=== PATIENT | female | born 1975 | race Two or more races ===

== ENCOUNTER 2018-05-20 09:53 | Outpatient (CLI) | payer OTHER | END 2018-05-20 10:07 | disposition home or self-care (01) | LOC: NUCLEAR 09:53 | DX: M06.89 Other specified rheumatoid arthritis, multiple sites (principal); M05.49 Rheumatoid myopathy with rheumatoid arthritis of multiple sites | CPT/HCPCS: 78315; A9503 ==

== ENCOUNTER 2020-10-26 21:43 | Emergency (ER) | payer OTHER ==
[~2020-10-26] VITALS: Ht 154.9 cm; Wt 86.2 kg
[2020-10-26] MEDS ORDERED: PROTONIX40 MG PO (22:31)
[2020-10-27] MEDS ORDERED: ZOFRAN8 MG PO (04:31)
[2020-10-27] MEDS ORDERED: PEPCID40 MG PO (04:31)
== END 2020-10-27 04:45 | disposition home or self-care (01) ==
LOC: ER 21:43
DX: K29.70 Gastritis, unspecified, without bleeding (principal); R11.11 Vomiting without nausea; Z11.52 Encounter for screening for COVID-19

== ENCOUNTER 2022-02-10 14:44 | Emergency (ER) | payer OTHER ==
[~2022-02-10] VITALS: Ht 154.9 cm; Wt 101.6 kg
[~2022-02-10 14:44] MED LIST: PEPCID40 MG PO; PROTONIX40 MG PO; ZOFRAN8 MG PO
[2022-02-10] MEDS ORDERED: METFORMIN HCL500 M3 (15:39)
== END 2022-02-10 20:50 | disposition home or self-care (01) ==
LOC: ER 14:44
DX: R07.89 Other chest pain (principal); E11.9 Type 2 diabetes mellitus without complications; Z79.84 Long term (current) use of oral hypoglycemic drugs; I10 Essential (primary) hypertension; Z20.822 Contact with and (suspected) exposure to COVID-19

== ENCOUNTER 2023-08-06 10:15 | Inpatient (IN) | payer OTHER ==
[~2023-08-06] VITALS: Ht 154.9 cm; Wt 99.8 kg
[~2023-08-06 10:15] MED LIST changes: +METFORMIN HCL500 M3
--- NOTE | 2023-08-06 10:33 | NUR ---
PACIENTE ALERTA Y ORIENTADA X 3. REFIERE 3 HERNANDEZ CON DOLOR PELVICO Y VOMITOS. HOY VOMITOS X 2.
[2023-08-06] MEDS ORDERED: MEPERIDINE HCL/PF 50 MG/ML VIAL IM STA (12:25)
[2023-08-06] MEDS ORDERED: 0.9 % SODIUM CHLORIDE 1,000 ML IV STA (12:25)
[2023-08-06] MEDS ORDERED: PROMETHAZINE HCL 25 MG/ML AMPUL IM SCH (12:30)
--- NOTE | 2023-08-06 12:56 | NUR ---
PACIENTE ALERTA Y ORIENTADA X3. . HOGAN ORIENTA A PACIENTE SOBRE TX Y PROCEDIMIENTO A REALIZAR Y REFIRIO ENTENDER. ADMINISTRA MEDICAMENTOS ORDENADOS POR MD. REALIZA MUESTRAS DE LABORATORIO BAJO MEDIDAS ASEPTICAS. CANALIZACION PATENTE Y JACQUELIN DE EDEMA Y ERITEMA. PENDIENTE CT ABDOMEN Y PELVICO CON CONTRASTE IV.
[2023-08-06 12:58] LABS: HEMATOCRIT 37.6 % (36.0-45.00); HEMOGLOBIN 12.9 g/dL (12.0-15.00); MEAN CELL VOLUME 88.7 fL (80.00-100.00); MEAN CORPUSCULAR HEMOGLOBIN 30.4 pg (27.00-32.0); MEAN CORPUSCULAR HGB CONC 34.2 g/dl (32.0-36.0); PLATELET COUNT 252 K/uL (150-450); RED BLOOD COUNT 4.24 M/uL (4.00-6.00); RED CELL DISTRIBUTION WIDTH 14.6 % (11.5-14.5)
[2023-08-06 13:36] LABS: ALBUMIN 3.2 gm/dL (3.4-5.0); BILIRUBIN TOTAL 0.6 mg/dL (0.3-1.2); BILIRUBIN,CONJUGATED 0.19 mg/dL (0.0-0.2); BILIRUBIN,UNCONJUGATED 0.41 mg/dL (0.0-0.6); CALCIUM 9.4 mg/dL (8.5-10.1); CREATININE SERUM 0.7 mg/dL (0.55-1.02); GFR 89.31; POTASSIUM 3.95 mEq/L (3.5-5.1); TOTAL PROTEIN 8.2 gm/dL (6.4-8.2)
[2023-08-06 13:47] LABS: URINE APPEARANCE Clear; URINE BILIRRUBIN Negative (NEGATIVE); URINE BLOOD Negative; URINE COLOR Yellow; URINE GLUCOSE Negative (NEGATIVE); URINE LEUKOCYTE Negative; URINE NITRATE Negative; URINE PROTEIN Negative (NEGATIVE)
[2023-08-06 13:51] LABS: URINE BACTERIA 1449.8 uL (0.0-1933); URINE EPITHELIAL CELLS 16.3 uL (0.0-38.8); URINE RBC 7.6 uL (0.0-20.8); URINE WBC 6.3 uL (0.0-23.2)
[2023-08-06] MEDS ORDERED: MEPERIDINE HCL/PF 50 MG/ML VIAL IM ONE (17:15)
[2023-08-06] MEDS ORDERED: PROMETHAZINE HCL 50 MG/ML AMPUL IM ONE (17:15)
--- NOTE | 2023-08-06 18:37 | NUR ---
SE YANNA MUESTRAS DE LAB LARRY ORDEN MEDICA BAJO EMDIDAS ASPETICAS. SE REALZIA EKG Y SE PRESENTA A DR. GRIFFIN EL CUAL EVALUA Y FIRMA EL MISMO. SE NOTIFICA XRAY PENDIENTE. SE ORIENTA A MANTENER NPO.
[2023-08-06] MEDS ORDERED: 0.9 % SODIUM CHLORIDE 1,000 ML IV SCH (19:00)
[2023-08-06] MEDS ORDERED: MORPHINE SULFATE 4 MG/ML CARTRIDGE IV PRN (19:00)
[2023-08-06] MEDS ORDERED: ACETAMINOPHEN 500 MG GEL..CAP PO PRN (19:00)
[2023-08-06] MEDS ORDERED: ONDANSETRON HCL 4 MG in 0.9 % SODIUM CHLORIDE 50 ML IV PRN (19:00)
[2023-08-06 19:40] LABS: INR 1.03; PARTIAL THROMBOPLASTIN TIME 34.9 SECONDS (22.0-34.0); PROTHROMBIN TIME 10.8 SECONDS (9.0-11.5)
[2023-08-06] MEDS ORDERED: MORPHINE SULFATE 4 MG/ML CARTRIDGE IV SCH (21:00)
[2023-08-07] MEDS ORDERED: PIPERACILLIN/TAZOBACTAM SODIUM 3.375 GM in DEXTROSE 5 % IN WATER 100 ML IV SCH
[2023-08-07] MEDS ORDERED: FAMOTIDINE/PF 20 MG in 0.9 % SODIUM CHLORIDE 8 ML IV PUSH SCH (09:00)
[2023-08-07] MEDS ORDERED: CEFOXITIN SODIUM 2,000 MG VIAL IV ONE ×2 (11:00→18:53)
[2023-08-07] MEDS ORDERED: POVIDONE-IODINE 118 ML BOTT TOP ONE ×2 (13:23→15:30)
[2023-08-07] MEDS ORDERED: THROMBIN,HU/FIBRINOGEN/CALCIUM 10 ML SYRINGE TOP ONE ×2 (15:18→15:30)
[2023-08-07] MEDS ORDERED: VISTASEAL DUAL APPICATOR 1 EACH APPL TOP ONE ×2 (15:18→15:30)
[2023-08-07] MEDS ORDERED: SUGAMMADEX SODIUM 200 MG/2 ML VIAL IV ONE (16:00)
[2023-08-07] MEDS ORDERED: RINGERS SOLUTION,LACTATED 1,000 ML IV SCH (17:00)
[2023-08-07] MEDS ORDERED: CEFOXITIN SODIUM 2,000 MG VIAL IV SCH (17:00)
[2023-08-07] MEDS ORDERED: KETOROLAC TROMETHAMINE 30 MG VIAL IV SCH (17:00)
[2023-08-07] MEDS ORDERED: SIMETHICONE 125 MG CAPSULE PO SCH (17:00)
[2023-08-07] MEDS ORDERED: KETOROLAC TROMETHAMINE 30 MG VIAL ONE (18:50)
[2023-08-07] MEDS ORDERED: PIPERACILLIN/TAZOBACTAM SODIUM 3.375 GM VIAL IV ONE (18:50)
[2023-08-07] MEDS ORDERED: DOCUSATE SODIUM 100MG CAP PO SCH (21:00)
[2023-08-07 21:51] LABS: HEMATOCRIT 34.9 % (36.0-45.00); HEMOGLOBIN 11.6 g/dL (12.0-15.00); MEAN CELL VOLUME 88.9 fL (80.00-100.00); MEAN CORPUSCULAR HEMOGLOBIN 29.7 pg (27.00-32.0); MEAN CORPUSCULAR HGB CONC 33.4 g/dl (32.0-36.0); PLATELET COUNT 251 K/uL (150-450); RED BLOOD COUNT 3.92 M/uL (4.00-6.00); RED CELL DISTRIBUTION WIDTH 14.9 % (11.5-14.5)
[2023-08-07 22:26] LABS: CALCIUM 8.8 mg/dL (8.5-10.1); GFR 59.18; POTASSIUM 4.25 mEq/L (3.5-5.1)
[2023-08-08 06:58] LABS: HEMATOCRIT 32.5 % (36.0-45.00); HEMOGLOBIN 11.1 g/dL (12.0-15.00); MEAN CORPUSCULAR HEMOGLOBIN 30.1 pg (27.00-32.0); MEAN CORPUSCULAR HGB CONC 34.2 g/dl (32.0-36.0); PLATELET COUNT 262 K/uL (150-450); RED BLOOD COUNT 3.69 M/uL (4.00-6.00); RED CELL DISTRIBUTION WIDTH 14.9 % (11.5-14.5)
[2023-08-08 07:24] LABS: CALCIUM 8.3 mg/dL (8.5-10.1); CREATININE SERUM 1.01 mg/dL (0.55-1.02); GFR 58.5; POTASSIUM 4.03 mEq/L (3.5-5.1)
[2023-08-08] MEDS ORDERED: PIPERACILLIN/TAZOBACTAM SODIUM 3.375 GM in 0.9 % SODIUM CHLORIDE 100 ML IV SCH (08:57)
[2023-08-08] MEDS ORDERED: ENOXAPARIN SODIUM 40 MG/0.4 ML SYRINGE SUBCUTANEO SCH (09:00)
[2023-08-08] MEDS ORDERED: IBUprofen 800 MG TABLET PO SCH (09:00)
[2023-08-08] MEDS ORDERED: OxyCODONE HCL/APAP UD (PERCOCET) PO PRN (09:00)
[2023-08-08] MEDS ORDERED: IPRATROPIUM BROMIDE 0.5 MG/2.5 ML AMPUL.NEB IH SCH (09:30)
[2023-08-08 10:09] LABS: ALPHA FETO PROTEIN 1.8 ng/mL (0.0-6.4); CA 125 6.4 U/mL (0.0-38.1)
[2023-08-08 13:52] LABS: CALCIUM 8.4 mg/dL (8.5-10.1); CREATININE SERUM 0.59 mg/dL (0.55-1.02); GFR 108.79; POTASSIUM 4.03 mEq/L (3.5-5.1)
[2023-08-09 02:29] LABS: HEMATOCRIT 28.3 % (36.0-45.00); HEMOGLOBIN 9.8 g/dL (12.0-15.00); MEAN CELL VOLUME 87.9 fL (80.00-100.00); MEAN CORPUSCULAR HEMOGLOBIN 30.3 pg (27.00-32.0); MEAN CORPUSCULAR HGB CONC 34.5 g/dl (32.0-36.0); PLATELET COUNT 207 K/uL (150-450); RED BLOOD COUNT 3.22 M/uL (4.00-6.00); RED CELL DISTRIBUTION WIDTH 14.8 % (11.5-14.5)
[2023-08-09 02:45] LABS: CALCIUM 8.3 mg/dL (8.5-10.1); CREATININE SERUM 0.68 mg/dL (0.55-1.02); GFR 92.35; POTASSIUM 3.77 mEq/L (3.5-5.1)
[2023-08-09] MEDS ORDERED: BENZONATATE 200 MG CAPSULE PO SCH (09:00)
== END 2023-08-09 14:51 | disposition home or self-care (01) | DRG 743 ==
LOC: ER 10:15 → MEDI 19:46 → OB/GYN 08-07 18:24
PROVIDERS: General Practice; Obstetrics & Gynecology; Obstetrics & Gynecology Gynecologic Oncology; ADMIT Internal Medicine; ATTEND Internal Medicine
PROC: BW21Y0Z Computerized Tomography (CT Scan) of Abdomen and Pelvis using Other Contrast, Unenhanced and Enhanced (ICD-10-PCS; 2023-08-06)
PROC: 0UT94ZZ Resection of Uterus, Percutaneous Endoscopic Approach (ICD-10-PCS; 2023-08-07)
PROC: 0UT74ZZ Resection of Bilateral Fallopian Tubes, Percutaneous Endoscopic Approach (ICD-10-PCS; 2023-08-07)
PROC: 0DBW4ZZ Excision of Peritoneum, Percutaneous Endoscopic Approach (ICD-10-PCS; 2023-08-07)
PROC: 0TN74ZZ Release Left Ureter, Percutaneous Endoscopic Approach (ICD-10-PCS; 2023-08-07)
PROC: 0TN64ZZ Release Right Ureter, Percutaneous Endoscopic Approach (ICD-10-PCS; 2023-08-07)
PROC: 0DNW4ZZ Release Peritoneum, Percutaneous Endoscopic Approach (ICD-10-PCS; 2023-08-07)
PROC: 0UT24ZZ Resection of Bilateral Ovaries, Percutaneous Endoscopic Approach (ICD-10-PCS; principal; 2023-08-07 11:00)
DX: N83.12 Corpus luteum cyst of left ovary (principal); N83.11 Corpus luteum cyst of right ovary; N80.102 Endometriosis of left ovary, unspecified depth; Z20.822 Contact with and (suspected) exposure to COVID-19

== ENCOUNTER 2024-02-19 16:56 | Emergency (ER) | payer OTHER ==
[~2024-02-19] VITALS: Ht 154.9 cm; Wt 97.5 kg
[2024-02-19] MEDS ORDERED: 0.9 % SODIUM CHLORIDE 1,000 ML IV STA (19:02)
[2024-02-19] MEDS ORDERED: ONDANSETRON HCL 2 MG/ML VIAL ONE (19:09)
[2024-02-19] MEDS ORDERED: FAMOTIDINE/PF 20 MG/2 ML VIAL ONE (19:10)
[2024-02-19] MEDS ORDERED: ONDANSETRON HCL 2 MG/ML VIAL IV ONE (19:15)
[2024-02-19] MEDS ORDERED: FAMOTIDINE/PF 20 MG/2 ML VIAL IV ONE (19:15)
[2024-02-19] MEDS ORDERED: MORPHINE SULFATE 4 MG/ML VIAL IV ONE (19:15)
[2024-02-19 19:37] LABS: HEMATOCRIT 36.5 % (36.0-45.00); HEMOGLOBIN 12.3 g/dL (12.0-15.00); MEAN CELL VOLUME 87.4 fL (80.00-100.00); MEAN CORPUSCULAR HEMOGLOBIN 29.3 pg (27.00-32.0); MEAN CORPUSCULAR HGB CONC 33.6 g/dl (32.0-36.0); PLATELET COUNT 234 K/uL (150-450); RED BLOOD COUNT 4.18 M/uL (4.00-6.00); RED CELL DISTRIBUTION WIDTH 15.2 % (11.5-14.5)
[2024-02-19 19:53] LABS: INR 0.94; PARTIAL THROMBOPLASTIN TIME 31.2 SECONDS (22.0-34.0); PROTHROMBIN TIME 10.3 SECONDS (9.0-11.5)
[2024-02-19 20:09] LABS: ALBUMIN 3.5 gm/dL (3.4-5.0); BILIRUBIN TOTAL 0.28 mg/dL (0.3-1.2); CALCIUM 9.1 mg/dL (8.5-10.1); CREATININE SERUM 0.68 mg/dL (0.55-1.02); GFR 91.96; GLOBULINA 4.1 G/DL (2.4-3.5); POTASSIUM 3.78 mEq/L (3.5-5.1); TOTAL PROTEIN 7.6 gm/dL (6.4-8.2)
[2024-02-19 20:26] LABS: PH,URINE 5.5 (5.0-8.0); URINE APPEARANCE Clear; URINE BILIRRUBIN Negative (NEGATIVE); URINE BLOOD Negative; URINE COLOR Yellow; URINE GLUCOSE Negative (NEGATIVE); URINE KETONE Negative (NEGATIVE); URINE LEUKOCYTE Negative; URINE NITRATE Negative; URINE PROTEIN Negative (NEGATIVE); URINE UROBILINOGEN 0.2 E.U./dl
[2024-02-19 20:30] LABS: URINE BACTERIA 230.4 uL (0.0-1933); URINE EPITHELIAL CELLS 6.9 uL (0.0-38.8)
[2024-02-19 20:39] LABS: URINE RBC 1.5 uL (0.0-20.8)
[2024-02-20] MEDS ORDERED: MEPERIDINE HCL/PF 50 MG/ML VIAL IV ONE (01:00)
== END 2024-02-20 02:01 | disposition home or self-care (01) ==
LOC: ER 16:56
PROVIDERS: Emergency Medicine
DX: R10.31 Right lower quadrant pain (principal)